=== PATIENT | female | born 1975 | race American Indian/Alaskan Native ===

== ENCOUNTER 2021-08-09 21:20 | Emergency (ER) | payer SELFPAY ==
[2021-08-10] MEDS ORDERED: TETANUS,DIPH,PERTUSS(ACELL) VACCINE 0.5 ML SYRINGE IM ONE (07:53)
[2021-08-10] MEDS ORDERED: IBUPROFEN 600 MG TAB PO ONE (07:53)
--- NOTE | 2021-08-10 08:27 | Emergency Department Report ---
ED Recheck HPI - General Chief Complaint: Animal Bite Stated Complaint: DOG BITE Time Seen by Provider: 08/10/21 07:51 Source: patient Mode of arrival: Ambulatory Limitations: No Limitations - Related Data Allergies Allergy/AdvReac Type Severity Reaction Status Date / Time No Known Allergies Allergy Unverified 08/09/21 21:39 ED Review of Systems ROS: Stated complaint: DOG BITE Other details as noted in HPI Comment: All other systems reviewed and negative ED Physical Exam - General Limitations: No Limitations ED Course Vital Signs 08/09/21 21:37 Temperature 98.7 F Pulse Rate 83 Respiratory 16 Rate Blood Pressure 143/43 O2 Sat by Pulse 98 Oximetry Critical care attestation.: If time is entered above; I have spent that time in minutes in the direct care of this critically ill patient, excluding procedure time. ED Disposition Condition: Stable Referrals: BAKARI BUENO MD [Primary Care Provider] - 3-5 Days
--- NOTE | 2021-08-10 08:29 | Emergency Department Report ---
ED Animal Bite HPI - General Chief Complaint: Animal Bite Stated Complaint: DOG BITE Time Seen by Provider: 08/10/21 07:51 Source: patient Mode of arrival: Ambulatory Limitations: No Limitations - History of Present Illness Initial Comments: Patient is a 45-year-old female that comes to the emergency room after being bit by a neighborhood dog. She states that she was walking her dog when the neighbors dog approached her biting her right hand. It appears that the dog broke off his collar because he had a collar attached to a piece of a broken leash. The patient knows the dog application support and will speak to him today regarding the rabies status of the dog. The patient has approximate 2 inch wound to the palmar surface of her right hand. It is clean. She had cleaned it prior to arrival. There is no bleeding. It is superficial with the edges approximated. She denies any other injury. MD Complaint: animal bite -: Sudden, hour(s) Location: other Animal: dog Animal Control Notified: Yes Description: appeared well (had leash and collar on ) Context: unprovoked, other (she was walking her dog) Associated Symptoms: none - Related Data Patient Tetanus UTD: No Previous Rx's Medication Instructions Recorded Last Taken Type Amoxicillin [Trimox CAP] 500 mg PO BID #20 capsule 08/10/21 Unknown Rx Allergies Allergy/AdvReac Type Severity Reaction Status Date / Time No Known Allergies Allergy Unverified 08/09/21 21:39 ED Review of Systems ROS: Stated complaint: DOG BITE Other details as noted in HPI Comment: All other systems reviewed and negative ED Past Medical Hx - Past Medical History Previous Medical History?: No - Surgical History Past Surgical History?: No - Family History Family history: no significant - Social History Smoking Status: Current Every Day Smoker Substance Use Type: Alcohol - Medications Home Medications: Home Medications Medication Instructions Recorded Confirmed Last Taken Type Amoxicillin [Trimox CAP] 500 mg PO BID #20 capsule 08/10/21 Unknown Rx ED Physical Exam - General Limitations: No Limitations General appearance: alert, in no apparent distress - Head Head exam: Present: atraumatic, normocephalic - Eye Eye exam: Present: normal appearance - ENT ENT exam: Present: mucous membranes moist - Neck Neck exam: Present: normal inspection - Respiratory Respiratory exam: Present: normal lung sounds bilaterally. Absent: respiratory distress - Cardiovascular Cardiovascular Exam: Present: regular rate, normal rhythm. Absent: systolic murmur, diastolic murmur, rubs, gallop - GI/Abdominal GI/Abdominal exam: Present: soft, normal bowel sounds - Extremities Exam Extremities exam: Present: normal inspection - Back Exam Back exam: Present: normal inspection - Neurological Exam Neurological exam: Present: alert, oriented X3 - Psychiatric Psychiatric exam: Present: normal affect, normal mood - Skin Skin exam: Present: warm, dry, normal color, other. Absent: rash ED Course Vital Signs 08/09/21 08/10/21 21:37 09:23 Temperature 98.7 F 97.9 F Pulse Rate 83 70 Respiratory 16 16 Rate Blood Pressure 143/43 Blood Pressure 118/78 [Left] O2 Sat by Pulse 98 98 Oximetry - Reevaluation(s) Reevaluation #1: 08/10/21 09:02 Tdap has been given. Wound cleaned and bandaged. Patient educated on rabies series and and the fact that she needs to discuss with her neighbor the dog's rabies status. She verbalizes understanding. Patient has full range of motion of her hand. Radial and ulnar pulses +2. Rapid cap refill. Full range of motion of the wrist. Radial and ulnar nerves intact. Patient was discharged home with discharge plan of care including diet, activity, medications and follow-up. Critical care attestation.: If time is entered above; I have spent that time in minutes in the direct care of this critically ill patient, excluding procedure time. ED Disposition Clinical Impression: Dog bite Qualifiers: Encounter type: initial encounter Qualified Code(s): W54.0XXA - Bitten by dog, initial encounter Disposition: HOME / SELF CARE / HOMELESS Is pt being admited?: No Does the pt Need Aspirin: No Condition: Stable Instructions: Animal Bite, Adult, [id number] Additional Instructions: Keep wound clean and dry Augmentin as ordered today Follow-up with PCP if you develop any signs of infection such as redness swelling drainage or fever Motrin or Tylenol for pain Your tetanus has been updated today Diet and activity as tolerated Follow-up with the dog application support regarding his rabies status. And follow-up with the health department as we discussed if the dog is not up-to-date on his shots. Prescriptions: Amoxicillin [Trimox CAP] 500 mg PO BID #20 capsule Referrals: BAKARI BUENO MD [Primary Care Provider] - 3-5 Days Time of Disposition: 08:55
[2021-08-10] MEDS ORDERED: SODIUM CHLORIDE 0.9% IRR 500 ML BOTTLE IR NR (08:30)
[2021-08-10] MEDS ORDERED: AMOXICILLIN/K CLAV 875/125MG TAB PO NR (09:00)
[2021-08-10 09:24] VITALS: BP 118/78
== END 2021-08-10 09:24 | disposition home or self-care (01) ==
LOC: ED 21:20
DX: S61.451A Open bite of right hand, initial encounter (principal); F17.200 Nicotine dependence, unspecified, uncomplicated; W54.0XXA Bitten by dog, initial encounter; Y93.89 Activity, other specified; Y92.89 Other specified places as the place of occurrence of the external cause; Y99.8 Other external cause status
CPT/HCPCS: 90471; 90715; 96372; 99282